=== PATIENT | female | born 1945 | race Caucasian/White ===

== ENCOUNTER 2020-01-30 10:35 | Emergency (ER) | payer OTHER ==
[~2020-01-30] VITALS: Ht 160 cm; Wt 79.8 kg
[2020-01-30] MEDS ORDERED: ZIAC 2.5-6.251 EACH (10:40)
[2020-01-30] MEDS ORDERED: PROTONIX20 MG (10:40)
== END 2020-01-30 13:22 | disposition home or self-care (01) ==
LOC: ER 10:35
DX: S00.81XA Abrasion of other part of head, initial encounter (principal); W01.198A Fall on same level from slipping, tripping and stumbling with subsequent striking against other object, initial encounter; Y93.01 Activity, walking, marching and hiking; Y92.018 Other place in single-family (private) house as the place of occurrence of the external cause; Y99.8 Other external cause status

== ENCOUNTER 2021-12-14 04:30 | Day surgery (SDC) | payer OTHER ==
[~2021-12-14 04:30] MED LIST: ATORVASTATIN CA40 MG PO; GLUMETZA500 MG PO; PROTONIX20 MG; ZESTRIL5 MG PO; ZIAC 2.5-6.251 EACH
== END 2021-12-16 14:35 | disposition home or self-care (01) ==
LOC: CIR.AMB 04:30
PROVIDERS: ATTEND Obstetrics & Gynecology
DX: N87.0 Mild cervical dysplasia (principal); I10 Essential (primary) hypertension; E11.9 Type 2 diabetes mellitus without complications; Z79.84 Long term (current) use of oral hypoglycemic drugs